=== PATIENT | male | born 1965 | race Two or more races ===

== ENCOUNTER 2024-03-12 23:03 | Emergency (ER) | payer BC, OTHER ==
[~2024-03-12] VITALS: Ht 167.6 cm; Wt 73.0 kg
--- NOTE | 2024-03-12 23:31 | ED.PDOC ---
GI ASSESSMENT HPI Comments 58-year-old male who came to the emergency room due to abdominal pain. Patient denies any medical problems. Denies any abdominal surgeries. Has been complaining of burning epigastric abdominal pain since yesterday. Denies any nausea, vomiting or changes in bowel habits. Vital signs were stable on arrival. Chief Complaint: Abdominal Pain Time Seen by MD: 23:30 Reviewed Notes: Nurses Notes Allergies: Coded Allergies: NO KNOWN ALLERGIES (Unverified , 03/13/24) Information Source: Patient Mode of Arrival: Ambulatory Timing: Hours Duration: Intermittent Prehospital treatment: None Quality: Burning Vomitus: None Stool: Normal Severity: Moderate Recent: Possible spoiled food Recent Hx of: None Pain Location: Epigastric Modifying Factors: Nothing Associated sign and symptoms: Abdominal Pain Past Medical History PAST MEDICAL HISTORY: Denies Surgical History: Denies all surgeries Family History Family History: Reviewed,noncontributory to illness Social History Smoker: Non-Smoker Alcohol: Denies ETOH Use Drugs: Denies Drug Use Lives In: Home Constitutional: denies: chills, diaphoresis, fatigue, fever, malaise, sweats, weakness, others EENTM: denies: blurred vision, double vision, ear bleeding, ear discharge, ear drainage, ear pain, ear ringing, eye pain, eye redness, hearing loss, mouth pain, mouth swelling, nasal discharge, nose bleeding, nose congestion, nose pain, photophobia, tearing, throat pain, throat swelling, voice changes, others Respiratory: denies: cough, hemoptysis, orthopnea, SOB at rest, shortness of breath, SOB with excertion, stridor, wheezing, others Cardiovascular: denies: chest pain, dizzy spells, diaphoresis, Dyspnea on exertion, edema, irregular heart beat, left arm pain, lightheadedness, palpitations, PND, syncope, others Gastrointestinal: reports: abdominal pain; denies: abdomen distended, blood streaked bowels, constipated, diarrhea, dysphagia, difficulty swallowing, hematemesis, melena, nausea, poor appetite, poor fluid intake, rectal bleeding, rectal pain, vomiting, others Genitourinary: denies: burning, dysuria, flank pain, frequency, hematuria, incontinence, penile discharge, penile sore, pain, testicle pain, testicle swelling, urgency, others Neurological: denies: dizziness, fainting, headache, left sided numbness, left sided weakness, numbness, paresthesia, pre-existing deficit, right sided numbness, right sided weakness, seizure, speech problems, tingling, tremors, weakness, others Musculoskeletal: denies: back pain, gout, joint pain, joint swelling, muscle pain, muscle stiffness, neck pain, others Integumetry: denies: bruises, change in color, change in hair/nails, dryness, laceration, lesions, lumps, rash, wounds, others Allergic/Immunocompromised: denies: Difficulty Healing, Frequent Infections, Hives, Itching, others Hematologic/Lymphatic: denies: anemia, blood clots, easy bleeding, easy bruising, swollen glands, others Endocrine: denies: excessive hunger, excessive sweating, excessive thirst, excessive urination, flushing, intolerance to cold, intolerance to heat, unexplained weight gain, unexplained weight loss, others Psychiatric: denies: anxiety, bipolar disorder, depression, hopeless, panic disorder, schizophrenia, sleepless, suicidal, others Physical Exam General Appearance: Mild Distress (Patient was in mild distress at time of evaluation. Patient did not look toxic.), Normal HEENT: Normal ENT Inspection, Pharynx Normal, TMs Normal Neck: Full Range of Motion, Non-Tender, Normal, Normal Inspection Respiratory: Chest Non-Tender, Lungs Clear, No Accessory Muscle Use, No Respiratory Distress, Normal Breath Sounds Cardiovascular: No Edema, No JVD, No Murmur, No Gallop, Normal Peripheral Pulses, Regular Rate/Rhythm Breast Exam: Deferred Gastrointestinal: Epigastric, No Organomegaly, No Pulsatile Mass, Normal Bowel Sounds, Soft, Tenderness (Mild tenderness to palpation throughout the epigastric region. No pulsatile masses. No signs of trauma. Abdomen was soft.) Genitalia: Deferred Pelvic: Deferred Rectal: Deferred Extremities: No calf tenderness, Normal capillary refill, Normal inspection, Normal range of motion, Non-tender, No pedal edema Musculoskeletal : Apperance: Normal Neurologic: Alert, No Motor Deficits, Normal Affect, Normal Mood, No Sensory Deficits Cerebellar Function: Normal Reflexes: Normal Skin: Dry, Normal Color, Warm Lymphatic: No Adenopathy Was a procedure done? Was a procedure done?: No GI differential Dx Differential Diagnosis: Gastroenteritis, UTI, Other (Constipation, acid reflux) X-Ray, Labs, Meds, VS Vital Signs Date Time Temp Pulse Resp B/P (MAP) Pulse Ox O2 Delivery O2 Flow Rate FiO2 03/13/24 00:21 128 17 96 Room Air 03/13/24 00:21 98.7 128 17 123/78 (93) 96 98.7 03/12/24 23:23 98.8 95 20 119/80 (93) 95 Lab Test 03/12/24 23:39 Range/Units Urine Color Yellow Yellow Urine Clarity Clear Clear Urine pH 5.5 5.0-9.0 Urine Specific Cody 1.047 H 1.001-1.035 Urine Protein Negative Negative Urine Ketones 2+ H Negative Urine Blood 1+ H Negative /uL Urine Nitrite Negative Negative Urine Bilirubin Negative Negative Urine Urobilinogen Normal Negative mg/dL Urine Leukocyte Esterase Negative Negative /uL Urine RBC 1 0 - 3 /hpf Urine Microscopic WBC 1 0-3 /HPF Urine Squamous Epithelial Cells Few <5 /hpf Urine Bacteria None seen None Seen /hpf Urine Glucose 4+ H Normal mg/dL Current Medications Medications (Trade) Dose Ordered Sig/Cee Route Start Time Stop Time Status Last Admin Al Hydrox/Mg Hydrox/Simethicone (Maalox Plus) 30 ml ONCE ONCE PO 03/12/24 23:30 03/12/24 23:31 DC 03/13/24 00:32 Lidocaine HCl (Xylocaine 2% Viscous) 3 ml ONCE ONCE PO 03/12/24 23:30 03/12/24 23:31 DC 03/13/24 00:32 Sodium Chloride 1,000 ml @ 1,000 mls/hr Q1H ONCE IV 03/13/24 00:30 03/13/24 01:29 03/13/24 00:32 X-Ray, Labs, Meds, VS Comment All studies performed in the ED were evaluated by me personally. Urinalysis is unremarkable for any urinary concerns. X-ray confirmed a moderate stool burden. Patient appears to be suffering from an acid reflux event with some constipation concerns. Patient had good relief of symptoms status post medication dispensed. Advised patient utilize medication as directed as well as additional medication as needed. Good hydration and healthy nutrition throughout. Time of 1ST Reevaluation: 01:12 Reevaluation 1ST: Improved Consultation: PCP Patient Education/Counseling: Diagnosis, Treatment Family Education/Counseling: Diagnosis, Treatment, No Family Present Departure 1 Departure Time of Disposition: 01:12 Impression: Primary Impression: Acid reflux Additional Impression: Constipation Disposition: HOME / SELF CARE / HOMELESS Condition: Stable Additional Instructions: Advise utilizing medication as directed as well as additional medication as needed. If symptoms continue, patient will need to follow up with primary care provider for continued evaluation and management. e-Prescriptions Lactulose (Lactulose) 10 Gm/15 Ml Teresa 10 GM PO Q8HP PRN, #150 ML Prov: PRAVEEN GOMEZ PAC 03/13/24 Simethicone (Simethicone) 80 Mg Chw 1 TAB PO Q8HR, #20 TAB Prov: PRAVEEN GOMEZ PAC 03/13/24 Omeprazole Magnesium (Omeprazole) 20 Mg Tab 20 MG PO DAILY for 14 Days, #14 TAB Prov: PRAVEEN GOMEZ PAC 03/13/24 Discharged With: Self, Friend Critical Care Note Critical Care Time?: No Stability Stability form required: No Heart Score Heart Score: Heart Score Response (Comments) Value History N/A 0 EKG N/A 0 Age N/A 0 Risk Factors N/A 0 Troponin N/A 0 Total 0 I personally scribed for PRAVEEN GOMEZ PAC ([email or web address] [email or web address]) on 03/12/24 at 23:31. Electronically submitted by Rivera Rolle ([employer]). I personally scribed for PRAVEEN GOMEZ PAC ([email or web address]) on 03/13/24 at 00:26. Electronically submitted by Rivera Rolle ([employer]). PRAVEEN GOMEZ PAC Mar 12, 2024 23:31
[2024-03-12 23:40] LABS: Urine Bacteria None Seen /hpf (None Seen)
--- NOTE | 2024-03-12 23:45 | DVH ---
Procedure: XY KUB ABDOMEN SINGLE VIEW Exam Date: 03/12/2024 11:30 PM History: Upper abdominal pain Comparison Study: None Technique: AP of the chest AP upright of the abdomen AP supine of the abdomen FINDINGS: No focal evidence of airspace disease. The cardiomediastinal silhouette is within normal limits. No acute osseous lesions. Nonobstructive bowel gas pattern noted. There is no evidence for pneumoperitoneum. No abnormal calcif ications noted. IMPRESSION: Non-specific gas-filled loops of bowel. Moderate fecal retention throughout the colon. END IMPRESSION:
[2024-03-13] MEDS: LIDOCAINE VISCOUS 2% 15ML UD PO ONE (00:32)
[2024-03-13] MEDS: MAALOX PLUS or MAALOX 30 ML PO ONE (00:32)
[2024-03-13] MEDS: SODIUM CHLORIDE 0.9% 1,000 ML IV ONE (00:32)
[2024-03-13 01:01] LABS: Urine Blood 1+ /uL (Negative); Urine Clarity Clear (Clear); Urine Color Yellow (Yellow); Urine Protein, UAD Negative (Negative); Urine Squamous Epithelial Cell FEW /hpf (<5); Urine Urobilinogen Normal (Negative); Urine WBC 1 /HPF (0-3); Urine pH 5.5 (5.0-9.0)
[2024-03-13 01:02] LABS: Urine Specific Gravity 1.047 (1.001-1.035)
[2024-03-13] MEDS ORDERED: SIME80CH49 PO (01:14)
[2024-03-13] MEDS ORDERED: OMEP-434 PO (01:14)
[2024-03-13] MEDS ORDERED: LACT10SO3 PO (01:15)
[2024-03-13] MEDS: LACTULOSE 20Gm/30ML SOLN PO ONE (01:20)
[2024-03-13 01:32] VITALS: BP 114/75; PULSE 99; RESP 18; TEMP 98.5; O2SAT 95
== END 2024-03-13 01:37 | disposition home or self-care (01) ==
LOC: ER 23:03
DX: K21.9 Gastro-esophageal reflux disease without esophagitis (principal); K59.00 Constipation, unspecified
CPT/HCPCS: 74018; 81001; 96360; 99284; J7030